=== PATIENT | male | born 1990 | race African-American/Black ===

== ENCOUNTER 2021-11-27 15:13 | Emergency (ER) | payer MEDICARE ==
[~2021-11-27] VITALS: Ht 180.3 cm; Wt 81.0 kg
[2021-11-27 15:15] VITALS: BP 137/97
[2021-11-27] MEDS ORDERED: ACETAMINOPHEN 325MG TABLET PO ONE (15:30)
== END 2021-11-27 16:50 | disposition home or self-care (01) ==
LOC: ER 15:13
DX: S06.9X1A Unspecified intracranial injury with loss of consciousness of 30 minutes or less, initial encounter (principal); Y00.XXXA Assault by blunt object, initial encounter; Y93.01 Activity, walking, marching and hiking; Y92.480 Sidewalk as the place of occurrence of the external cause
CPT/HCPCS: 99282

== ENCOUNTER 2021-11-27 18:18 | Emergency (ER) | payer MEDICARE ==
[~2021-11-27] VITALS: Ht 180.3 cm; Wt 81.0 kg
[2021-11-27] MEDS ORDERED: IBUPROFEN 400MG TABLET PO ONE (19:15)
[2021-11-27 19:42] VITALS: BP 141/82
== END 2021-11-27 21:10 | disposition home or self-care (01) ==
LOC: ER 18:18
DX: S09.8XXA Other specified injuries of head, initial encounter (principal); Y00.XXXA Assault by blunt object, initial encounter; Y93.9 Activity, unspecified; Y92.9 Unspecified place or not applicable
CPT/HCPCS: 99281

== ENCOUNTER 2021-11-27 21:19 | Emergency (ER) | payer MEDICARE ==
[~2021-11-27] VITALS: Ht 180.3 cm; Wt 82.0 kg
[2021-11-27 22:51] VITALS: BP 154/82
== END 2021-11-28 00:20 | disposition home or self-care (01) ==
LOC: ER 21:19
DX: S09.8XXA Other specified injuries of head, initial encounter (principal); F31.9 Bipolar disorder, unspecified; F20.9 Schizophrenia, unspecified; Z87.891 Personal history of nicotine dependence; Y08.89XA Assault by other specified means, initial encounter; Y93.89 Activity, other specified; Y92.89 Other specified places as the place of occurrence of the external cause
CPT/HCPCS: 99281

== ENCOUNTER 2021-11-27 23:59 | Emergency (ER) | payer MEDICARE ==
[~2021-11-27] VITALS: Ht 180.3 cm; Wt 82.0 kg
[2021-11-28 00:20] VITALS: BP 157/89
== END 2021-11-28 11:26 | disposition home or self-care (01) ==
LOC: ER 23:59
DX: S09.8XXA Other specified injuries of head, initial encounter (principal); F31.9 Bipolar disorder, unspecified; F20.9 Schizophrenia, unspecified; Y08.89XA Assault by other specified means, initial encounter; Y93.89 Activity, other specified; Y92.89 Other specified places as the place of occurrence of the external cause
CPT/HCPCS: 99281

== ENCOUNTER 2021-11-28 07:17 | Emergency (ER) | payer MEDICARE ==
[~2021-11-28] VITALS: Ht 167.6 cm; Wt 79.0 kg
[2021-11-28 07:32] VITALS: BP 142/73
== END 2021-11-28 08:02 | disposition home or self-care (01) ==
LOC: ER 07:17
DX: F23 Brief psychotic disorder (principal); R45.1 Restlessness and agitation; F31.9 Bipolar disorder, unspecified
CPT/HCPCS: 99281